=== PATIENT | male | born 1995 | race Two or more races ===

== ENCOUNTER 2017-02-11 17:52 | Emergency (ER) | payer OTHER ==
[2017-02-11 18:19] VITALS: BP 166/86; PULSE 77; TEMP 98.6; BMI 28.7
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
== END 2017-02-11 20:40 | disposition home or self-care (01) ==
LOC: JERFT 17:52
PROC: 08QPXZZ Repair Left Upper Eyelid, External Approach (ICD-10-PCS; principal; 2017-02-11)
DX: S01.112A Laceration without foreign body of left eyelid and periocular area, initial encounter (principal); W50.0XXA Accidental hit or strike by another person, initial encounter; Y93.67 Activity, basketball; Y92.310 Basketball court as the place of occurrence of the external cause; Y99.8 Other external cause status
CPT/HCPCS: 99281-25

== ENCOUNTER 2017-02-21 08:57 | Emergency (ER) | payer OTHER ==
[2017-02-21 09:07] VITALS: BP 129/62; PULSE 72; TEMP 98.3; BMI 28.5
--- NOTE | 2017-02-21 09:41 | PDOC ---
Suture Removal/Wound Check HPI - History of Present Illness Chief Complaint: Suture/Staple Removal(Here) Stated Complaint: SUTURE REMOVAL Time Seen by Provider: 02/21/17 09:30 History Source: Yes: Patient Exam Limitations: Yes: No Limitations Treated at: [facility] [place] Date of Last ED visit: 02/11/17 - Previous ED Treatment Type of procedure performed on last visit: Yes: Laceration Repair Tetanus Immunization: Yes: Up to Date Antibiotics Prescribed: Yes Past History - Past Medical History Allergies/Adverse Reactions: Allergies Allergy/AdvReac Type Severity Reaction Status Date / Time No Known Allergies Allergy Verified 02/21/17 09:04 Home Medications: Ambulatory Orders NK [No Known Home Medication] 02/11/17 Other medical history: DENIES. - Immunization History Immunization Up to Date: Yes - Suicide/Smoking/Psychosocial Hx Smoking History: Never smoked Have you smoked in the past 12 months: No Hx Alcohol Use: No Drug/Substance Use Hx: No Substance Use Type: Marijuana Suture Removal/Wound Check PE - Physical Exam Laceration/Wound Check Symptoms: reports: None Current Severity Level: None Maximum Severity Level: None Pain Localization: None *Review of Systems - Review of Systems Constitutional: No: Symptoms Reported Integumentary: No: Symptoms Reported Hematologic/Lymphatic: No: Symptoms Reported All Other Systems: Reviewed and Negative Medical Decision Making - Medical Decision Making 02/21/17 09:42 A/P: Patient here for removal of 10 sutures to left eyebrow, there is mild keloid with scarring, patient is aware and will follow-up with plastics. Wound did heal however mild flap was noted. Patient reports that wound was deep and is satisfied with healing, will follow-up as instructed. *DC/Admit/Observation/Transfer Diagnosis at time of Disposition: Visit for suture removal - Discharge Dispostion Disposition: HOME Condition at time of disposition: Good Admit: No - Referrals Referrals: Reji Tracy MD [Staff Physician] - - Patient Instructions Printed Discharge Instructions: DI for Suture Removal Additional Instructions: Please keep area covered and away from sunlight. Can use scar guard or scar away over area once fully healed Recommend follow-up with plastics as needed after fully healed
== END 2017-02-21 09:50 | disposition home or self-care (01) ==
LOC: JERFT 08:57
DX: Z48.02 Encounter for removal of sutures (principal)
CPT/HCPCS: 99281-25

== ENCOUNTER 2017-06-20 12:49 | Emergency (ER) | payer OTHER ==
[2017-06-20 13:15] VITALS: TEMP 99; BMI 28.5
[2017-06-20] MEDS ORDERED: ONDANSETRON 4 MG/2 ML VIAL IVPB ONE (15:43)
[2017-06-20] MEDS ORDERED: SODIUM CHLORIDE 1,000 ML IV STA (15:43)
[2017-06-20] MEDS ORDERED: ONDANSETRON 4 MG/2 ML VIAL ONE (15:44)
[2017-06-20 16:12] LABS: EOS % 1.1 % (0-4.5); HEMATOCRIT 44.7 % (35.4-49); LYMPH % 5.9 % (8-40); MCH 30.9 pg (25.7-33.7); MCHC 33.5 g/dl (32.0-35.9); MEAN CELL VOLUME 92.1 fl (80-96); MEAN PLT VOLUME 8.6 fl (7.5-11.1); MONO % 7.2 % (3.8-10.2); NEUT % 85.8 % (42.8-82.8); PLATELET COUNT 213 K/MM3 (134-434); RBC 4.86 M/mm3 (4.00-5.60); RDW 12.6 % (11.9-15.9)
--- NOTE | 2017-06-20 16:31 | PDOC ---
History of Present Illness - General Chief Complaint: Vomiting/Diarrhea Stated Complaint: VOMITING, DIARRHEA Time Seen by Provider: 06/20/17 15:30 - History of Present Illness Initial Comments: 06/20/17 16:29 21 M with no PMH presents to ER with 1 day of N+V+D and abdominal pain. Pt reports subjective fevers and several episodes of nonbloody emesis accompanied by watery brown diarrhea. Pt endorses intermittent diffuse abdominal cramps. Currently denies any abdominal pain. Pt has sick contact at home with same symptoms. Denies CP/SOB. Denies dysuria. Past History - Past Medical History Allergies/Adverse Reactions: Allergies Allergy/AdvReac Type Severity Reaction Status Date / Time No Known Allergies Allergy Verified 02/21/17 09:04 Home Medications: Ambulatory Orders Ondansetron [Zofran *Odt*] 8 mg SL TID PRN #15 od.tablet 06/20/17 COPD: No - Immunization History Immunization Up to Date: Yes - Suicide/Smoking/Psychosocial Hx Smoking History: Never smoked Have you smoked in the past 12 months: No Information on smoking cessation initiated: No Hx Alcohol Use: No Drug/Substance Use Hx: No Substance Use Type: None Review of Systems - Review of Systems Comments:: 06/20/17 16:30 "GENERAL/CONSTITUTIONAL: No fever or chills. No weakness. HEAD, EYES, EARS, NOSE AND THROAT: No change in vision. No ear pain or discharge. No sore throat. CARDIOVASCULAR: No chest pain or shortness of breath. RESPIRATORY: No cough, wheezing, or hemoptysis. GASTROINTESTINAL: + nausea, vomiting, and diarrhea GENITOURINARY: No dysuria, frequency, or change in urination. MUSCULOSKELETAL: No joint or muscle swelling or pain. No neck or back pain. SKIN: No rash NEUROLOGIC: No headache, vertigo, loss of consciousness, or change in strength/ sensation. ENDOCRINE: No increased thirst. No abnormal weight change. HEMATOLOGIC/LYMPHATIC: No anemia, easy bleeding, or history of blood clots. ALLERGIC/IMMUNOLOGIC: No hives or skin allergy. " *Physical Exam - Vital Signs Last Vital Signs Temp Pulse Resp BP Pulse Ox 99.0 F 91 H 17 120/60 100 06/20/17 13:13 06/20/17 13:13 06/20/17 13:13 06/20/17 13:13 06/20/17 13:13 - Physical Exam Comments: 06/20/17 16:30 "GENERAL: Awake, alert, and fully oriented, in no acute distress HEAD: No signs of trauma EYES: PERRLA, EOMI, sclera anicteric, conjunctiva clear ENT: Auricles normal inspection, hearing grossly normal, nares patent, oropharynx clear without exudates. Moist mucosa NECK: Nontender, no stepoffs, Normal ROM, supple, no lymphadenopathy, JVD, or masses LUNGS: Breath sounds equal, clear to auscultation bilaterally. No wheezes, and no crackles HEART: Regular rate and rhythm, normal S1 and S2, no murmurs, rubs or gallops ABDOMEN: Soft, nontender, normoactive bowel sounds. No guarding, no rebound. No masses EXTREMITIES: Normal range of motion, no edema. No clubbing or cyanosis. No cords, erythema, or tenderness NEUROLOGICAL: Cranial nerves II through XII intact. 5/5 strength and sensation in all extremities, Normal speech, normal gait SKIN: Warm, Dry, normal turgor, no rashes or lesions noted. " ED Treatment Course - LABORATORY CBC & Chemistry Diagram: 06/20/17 15:42 06/20/17 15:42 - ADDITIONAL ORDERS Additional order review: 06/20/17 15:42 RBC 4.86 MCV 92.1 MCHC 33.5 RDW 12.6 MPV 8.6 Neutrophils % 85.8 H Lymphocytes % 5.9 L Monocytes % 7.2 Eosinophils % 1.1 Basophils % 0.0 - Medications Given in the ED: ED Medications Discontinued Medications Generic Name Dose Route Start Last Admin Trade Name Ericq PRN Reason Stop Dose Admin Ondansetron HCl 4 mg 06/20/17 15:43 06/20/17 15:47 Zofran Injection IVPB 06/20/17 15:44 4 mg ONCE ONE Administration Medical Decision Making - Medical Decision Making 06/20/17 16:31 21 M with N+V+D. Likely viral gastroenteritis. Pt with BENIGN abdominal exam at this time. No indication for CT or other imaging. - Labs - IVF, zofran - Reassess 06/20/17 16:51 Pt reassessed s/p IVF and meds - now reports that he feels much better, able to tolerate PO. Repeat abdominal exam benign. Pt well appearing, vitals normal, clinically stable for DC. I discussed the physical exam findings, ancillary test results and final diagnoses with the patient. I answered all of the patient's questions. The patient was satisfied with the care received and felt comfortable with the discharge plan and treatment plan. The patient agrees to follow up with the primary care physician within 24-72 hours. *DC/Admit/Observation/Transfer Diagnosis at time of Disposition: Gastroenteritis - Discharge Dispostion Disposition: HOME - Prescriptions Prescriptions: Ondansetron [Zofran *Odt*] 8 mg SL TID PRN #15 od.tablet PRN Reason: Nausea And/Or Vomiting - Referrals - Patient Instructions Printed Discharge Instructions: DI for Viral Gastroenteritis -- Adult Additional Instructions: Drink plenty of fluids to stay hydrated. Take tylenol or motrin as needed for fevers. If you experience worsening vomiting, pain, or any other concerning symptoms, return to the ER immediately. - Post Discharge Activity Forms/Work/School Notes: Back to Work - Attestations Physician Attestion: 06/20/17 17:28 I, Dr. Reji Mayers MD, attest that this document has been prepared under my direction and personally reviewed by me in its entirety. I further attest, that it accurately reflects all work, treatment, procedures and medical decision -making performed by me.
[2017-06-20 17:19] LABS: ALBUMIN 3.9 g/dl (3.4-5.0); ANION GAP 5 (8-16); BLOOD UREA NITROGEN 15 mg/dL (7-18); CALCIUM 8.1 mg/dL (8.5-10.1); CHLORIDE 101 mmol/L (98-107); CO2 29 mmol/L (21-32); CREATININE 1.1 mg/dL (0.7-1.3); GLUCOSE,RANDOM 86 mg/dL (74-106); LIPASE 94 U/L (73-393); POTASSIUM 3.7 mmol/L (3.5-5.1); SGOT/AST 26 U/L (15-37); SODIUM 135 mmol/L (136-145)
[2017-06-20 17:45] VITALS: BP 118/58; PULSE 74
[2017-06-20 18:03] LABS: ALK PHOS 68 U/L (45-117); SGPT/ALT 33 U/L (12-78); TOT PROT 7.4 g/dl (6.4-8.2)
== END 2017-06-20 17:52 | disposition home or self-care (01) ==
LOC: JER 12:49
PROC: 3E033GC Introduction of Other Therapeutic Substance into Peripheral Vein, Percutaneous Approach (ICD-10-PCS; principal; 2017-06-20)
DX: K52.9 Noninfective gastroenteritis and colitis, unspecified (principal)
CPT/HCPCS: 36415; 80053; 83690; 85025; 99281-25

== ENCOUNTER 2017-09-25 20:52 | Emergency (ER) | payer OTHER ==
--- NOTE | 2017-09-25 21:12 | PDOC ---
History of Present Illness - General Stated Complaint: INJURY Time Seen by Provider: 09/25/17 21:08 History Source: Patient Exam Limitations: No Limitations - History of Present Illness Initial Comments: 09/25/17 21:17 This is a 21yo man without medical history who presents to ED with right 3rd digit pain for 3 weeks s/p closing garage door on his finger. He denies pain. Full sensation present to digit. Past History - Past Medical History Allergies/Adverse Reactions: Allergies Allergy/AdvReac Type Severity Reaction Status Date / Time No Known Allergies Allergy Verified 09/25/17 21:08 Home Medications: Ambulatory Orders Ondansetron [Zofran *Odt*] 8 mg SL TID PRN #15 od.tablet 06/20/17 COPD: No - Immunization History Immunization Up to Date: Yes - Suicide/Smoking/Psychosocial Hx Smoking History: Never smoked Have you smoked in the past 12 months: No Hx Alcohol Use: No Drug/Substance Use Hx: No Substance Use Type: None Review of Systems - Review of Systems Able to Perform ROS?: Yes Is the patient limited Russian proficient: No Constitutional: No: Symptoms Reported HEENTM: No: Symptoms Reported Respiratory: No: Symptoms reported Cardiac (ROS): No: Symptoms Reported ABD/GI: No: Symptoms Reported : No: Symptoms Reported Musculoskeletal: No: Symptoms Reported Integumentary: Yes: See HPI Neurological: No: Symptoms reported *Physical Exam - Physical Exam General Appearance: Yes: Appropriately Dressed. No: Apparent Distress HEENT: positive: Normal ENT Inspection Respiratory/Chest: positive: Lungs Clear, Normal Breath Sounds. negative: Respiratory Distress, Accessory Muscle Use Cardiovascular: positive: Regular Rhythm, Regular Rate. negative: Murmur Gastrointestinal/Abdominal: positive: Normal Bowel Sounds, Soft. negative: Tender Extremity: positive: Other (subungal hematoma to 3rd digit of right hand) Medical Decision Making - Medical Decision Making 09/25/17 21:20 A/P: 21yo man with subungal hematoma Full sensation to all digits No erythema noted. No tenderness to palpation of digit Discharge *DC/Admit/Observation/Transfer Diagnosis at time of Disposition: Subungual hematoma of digit of hand Qualifiers: Encounter type: initial encounter Qualified Code(s): S60.10XA - Contusion of unspecified finger with damage to nail, initial encounter - Discharge Dispostion Disposition: HOME Condition at time of disposition: Fair Decision to Admit order: No - Referrals - Patient Instructions Additional Instructions: You will probably lose your nail. Return to ER for any concerns. - Post Discharge Activity
[2017-09-25 21:15] VITALS: BP 117/86; PULSE 81; TEMP 98.4; BMI 32.3
== END 2017-09-25 21:22 | disposition home or self-care (01) ==
LOC: JER 20:52
DX: S60.10XA Contusion of unspecified finger with damage to nail, initial encounter (principal); W22.8XXA Striking against or struck by other objects, initial encounter; Y93.89 Activity, other specified; Y92.9 Unspecified place or not applicable
CPT/HCPCS: 99281-25

== ENCOUNTER 2018-07-20 18:25 | Emergency (ER) | payer OTHER ==
--- NOTE | 2018-07-20 18:34 | PDOC ---
Rapid Medical Evaluation Time Seen by Provider: 07/20/18 18:27 Medical Evaluation: Allergies Allergy/AdvReac Type Severity Reaction Status Date / Time No Known Allergies Allergy Verified 09/25/17 21:08 07/20/18 18:27 I have performed a brief in-person evaluation of this patient. The patient presents with a chief complaint of: Left ankle pain Pertinent physical exam findings: No bony tenderness. Ambulatory on ankle x3 days I have ordered the following: xray The patient will proceed to the ED for further evaluation. Discharge Disposition - Diagnosis Ankle pain, left - Referrals - Patient Instructions - Post Discharge Activity
[2018-07-20 18:36] VITALS: BP 139/91; PULSE 103; TEMP 98.1; BMI 32.3
--- NOTE | 2018-07-20 19:22 | PDOC ---
History of Present Illness - General Chief Complaint: Injury Stated Complaint: LEFT SPRAIN ANKLE Time Seen by Provider: 07/20/18 18:27 - History of Present Illness Initial Comments: 07/20/18 19:17 22-year-old male presents for evaluation of left ankle pain after describing an inversion injury which occurred about 3 days ago a playing basketball. 07/20/18 19:19 He also complains of right elbow pain after fall Carlos the same injury. Past History - Past Medical History Allergies/Adverse Reactions: Allergies Allergy/AdvReac Type Severity Reaction Status Date / Time No Known Allergies Allergy Verified 09/25/17 21:08 Home Medications: Ambulatory Orders NK [No Known Home Medication] 09/25/17 COPD: No - Immunization History Immunization Up to Date: Yes - Suicide/Smoking/Psychosocial Hx Smoking History: Never smoked Have you smoked in the past 12 months: No Information on smoking cessation initiated: No Hx Alcohol Use: No Drug/Substance Use Hx: No Substance Use Type: None Review of Systems - Review of Systems Musculoskeletal: Yes: Joint Pain *Physical Exam - Vital Signs Last Vital Signs Temp Pulse Resp BP Pulse Ox 98.1 F 103 H 17 139/91 99 07/20/18 18:34 07/20/18 18:34 07/20/18 18:34 07/20/18 18:34 07/20/18 18:34 - Physical Exam Comments: 07/20/18 19:19 Left ankle skin color and temperature are normal. There is mild lateral swelling. There is no tenderness about the knee proximal fibula or along its distal coarse. No tenderness about the medial lateral malleolus base of the fifth metatarsal or navicular. Mild tenderness over the ATFL. No instability. No gross sensorimotor deficits. Is neurovascular intact. Demonstrates no tenderness full range of motion no evidence of instability. Neurovascularly intact Moderate Sedation - Procedure Monitoring Vital Signs: Procedure Monitoring Vital Signs Temperature 98.1 F 07/20/18 18:34 Pulse Rate 103 H 07/20/18 18:34 Respiratory Rate 17 07/20/18 18:34 Blood Pressure 139/91 07/20/18 18:34 O2 Sat by Pulse Oximetry (%) 99 07/20/18 18:34 Medical Decision Making - Medical Decision Making 07/20/18 19:20 X-rays of the left ankle show no evidence of fracture trauma or destructive process. This is a left ankle sprain in the left elbow contusion. Weight-bear as tolerated with crutches and Aircast follow-up with orthopedic *DC/Admit/Observation/Transfer Diagnosis at time of Disposition: Ankle pain, left, Left ankle sprain, Contusion of right elbow - Discharge Dispostion Disposition: HOME Condition at time of disposition: Stable Decision to Admit order: No - Referrals Referrals: Olaf Peguero DO [Staff Physician] - - Patient Instructions Printed Discharge Instructions: Ankle Sprain, DI for Ankle Sprain, Contusion Additional Instructions: Tylenol Motrin as directed for pain. He may weight-bear as tolerated with use of crutches and the Aircast. Please follow-up with orthopedic surgery in 1-2 days for further evaluation and treatment options. Return to the emergency room for worsening symptoms. - Post Discharge Activity Forms/Work/School Notes: Back to Work
== END 2018-07-20 19:40 | disposition home or self-care (01) ==
LOC: JERFT 18:25 → JER 18:25 → JERFT 19:40
PROC: 2W3QX1Z Immobilization of Right Lower Leg using Splint (ICD-10-PCS; principal; 2018-07-20)
DX: S93.402A Sprain of unspecified ligament of left ankle, initial encounter (principal); S50.01XA Contusion of right elbow, initial encounter; W18.39XA Other fall on same level, initial encounter; Z91.81 History of falling; Y93.67 Activity, basketball; Y92.310 Basketball court as the place of occurrence of the external cause; Y99.8 Other external cause status
CPT/HCPCS: 73610-TC-LT-FY; 73630-TC-LT; 99281-25

== ENCOUNTER 2019-03-02 14:47 | Emergency (ER) | payer OTHER ==
[2019-03-02 14:55] VITALS: BP 174/90; PULSE 95; TEMP 98; BMI 30.8
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
[2019-03-02] MEDS ORDERED: KETOROLAC TROMETHAMINE 60 MG/2 ML VIAL IM ONE (16:41)
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
[2019-03-02] MEDS ORDERED: KETOROLAC TROMETHAMINE 60 MG/2 ML VIAL ONE (16:57)
== END 2019-03-02 17:09 | disposition home or self-care (01) ==
LOC: JERFT 14:47
PROC: 3E0233Z Introduction of Anti-inflammatory into Muscle, Percutaneous Approach (ICD-10-PCS; principal; 2019-03-02)
DX: S39.012A Strain of muscle, fascia and tendon of lower back, initial encounter (principal); M62.830 Muscle spasm of back; V47.5XXA Car driver injured in collision with fixed or stationary object in traffic accident, initial encounter; Y92.412 Parkway as the place of occurrence of the external cause; Y93.89 Activity, other specified; Y99.8 Other external cause status
CPT/HCPCS: 99282-25

== ENCOUNTER 2023-06-17 19:48 | Emergency (ER) | payer OTHER ==
[2023-06-17 19:54] VITALS: BP 138/86; PULSE 100; RESP 18; TEMP 98; BMI 31.5
[2023-06-17] MEDS ORDERED: ACETAMINOPHEN 500 MG TABLET (FP) PO ONE (19:57)
[2023-06-17] MEDS ORDERED: ACETAMINOPHEN 500 MG TABLET (FP) ONE (20:58)
[2023-06-17] MEDS ORDERED: TETRACAINE 0.5% HCL 0.6ML DROPPER.BOTTLE OD ONE (22:48)
[2023-06-17] MEDS ORDERED: FLUORESCEIN NA 1 EA STRIP OD ONE (22:48)
[2023-06-17] MEDS ORDERED: TETRACAINE 0.5% OPHTH SOLN 2 ML BOTTLE ONE (22:55)
[2023-06-17] MEDS ORDERED: FLUORESCEIN NA 1 EA STRIP ONE (22:55)
[2023-06-17] MEDS ORDERED: ERYTHROMYCIN 0.5% OPHTHALMIC OINTMENT 3.5 GM TUBE ONE (23:37)
[2023-06-17] MEDS ORDERED: ERYTHROMYCIN 0.5% OPHTHALMIC OINTMENT 3.5 GM TUBE OD SCH (23:45)
[2023-06-18] MEDS ORDERED: ERYTHROMYCIN 0.5% OPHTHALMIC OINTMENT 3.5 GM TUBE OD SCH (10:00)
== END 2023-06-17 23:54 | disposition home or self-care (01) ==
LOC: JER 19:48
DX: S09.93XA Unspecified injury of face, initial encounter (principal); S09.90XA Unspecified injury of head, initial encounter; S05.01XA Injury of conjunctiva and corneal abrasion without foreign body, right eye, initial encounter; G44.309 Post-traumatic headache, unspecified, not intractable; Y04.8XXA Assault by other bodily force, initial encounter
CPT/HCPCS: 70450-TC; 70480-TC; 72125-TC; 99284-25